=== PATIENT | male | born 1990 | race Hispanic/Latino ===

== ENCOUNTER 2024-07-26 10:36 | Emergency (ER) | payer OTHER, SELFPAY ==
[2024-07-26 10:56] VITALS: BP 164/78; PULSE 85; RESP 18; TEMP 36.7; O2SAT 98; BMI 46.3
--- NOTE | 2024-07-26 11:08 | DI.CT.S_ITS ---
PROCEDURE: CT ABDOMEN PELVIS W CON INDICATIONS: RLQ pain TECHNIQUE: After the administration of intravenous contrast, axial sections acquired from the lung bases to the pubic symphysis. Coronal and sagittal reformats were performed. For radiation dose reduction, the following was used: automated exposure control, adjustment of mA and/or kV according to patient size. COMPARISON: None. FINDINGS: Image quality: Diagnostic. Lower Chest: No significant findings. ABDOMEN: Liver: No solid mass. Gallbladder: No radiopaque gallstones or wall thickening. Biliary ducts: No biliary dilation. Pancreas: No ductal dilation. Spleen: Size is within normal limits. Adrenal Glands: No adrenal nodules. Kidneys and Ureters: No hydronephrosis. No solid mass. No complex renal cystic lesion which requires follow up. Stomach and Bowel: Normal colonic caliber, without significant wall thickening. Peritoneum: No abnormal intraperitoneal fluid. No free air. Ventral Wall: No significant ventral hernia. Abdominal Nodes: No retroperitoneal or mesenteric adenopathy by size criteria. Vessels: Aorta and inferior vena cava are normal in size. PELVIS: Pelvic Organs: Unremarkable. Bladder: No bladder wall thickening, accounting for underdistention. Pelvic Nodes: No enlarged lymph nodes. Miscellaneous: No inguinal hernias are seen. Normal appendix found right lower quadrant. Bones: No aggressive osseous abnormality. IMPRESSION: Source of persistent abdominal pain is not identified. Normal appendix found right lower quadrant. Dictated by: Alex Mathew M.D. on 07/26/2024 at 12:28 Approved by: Alex Mathew M.D. on 07/26/2024 at 12:30
[2024-07-26] MEDS: KETOROLAC 30 MG/ML VIAL 15 MG IV (11:35)
[2024-07-26] MEDS: SODIUM CHLORIDE 0.9% 1,000 ML 1000 ML IV (11:36)
[2024-07-26 11:41] LABS: Add Manual Diff / Slide Review NO; Basophils Absolute Auto 0 /uL (0-100); Basophils Percent Auto 0.6 % (0-2); Eosinophils Absolute Auto 100 /uL (0-450); Eosinophils Percent Auto 2.3 % (2-4); Hematocrit 48.6 % (41-53); Hemoglobin 16.9 g/dL (13.5-17.5); Lymphocytes Absolute Auto 2000 /uL (1100-4500); Lymphocytes Percent Auto 37.8 % (25-40); Mean Corpuscular HGB Conc 34.7 % (30-36); Mean Corpuscular Hemoglobin 31.3 PG (26-34); Mean Corpuscular Volume 90.4 fL (80-100); Monocytes Absolute Auto 500 /uL (0-900); Monocytes Percent Auto 8.9 % (3-14); Neutrophils Absolute Auto 2700 /uL (1500-7000); Neutrophils Percent Auto 50.4 % (50-75); Platelet Count 202 X10^3/uL (150-400); Red Blood Cell Count 5.38 X10^6/uL (4.5-5.9); Red Cell Distribution Width 12.3 % (11.6-14.8); White Blood Cell Count 5.3 X10^3/uL (4.5-11.0)
[2024-07-26 11:51] LABS: Alanine Aminotransferase 74 IU/L (<50); Albumin 4.8 g/dL (3.5-5.0); Albumin Globulin Ratio 1.4 (1.0-2.8); Alkaline Phosphatase 80 U/L (38-126); Aspartate Aminotransferase 38 IU/L (17-59); Bilirubin Total 0.7 mg/dL (0.2-1.3); Blood Urea Nitrogen 17 mg/dL (9-20); Calcium 9.4 mg/dL (8.4-10.2); Carbon Dioxide 25 mmol/L (22-32); Chloride 102 mmol/L (98-107); Estimated Glomerular Filt Rate > 60 mL/min (>60); Globulin 3.4 g/dL (1.7-4.1); Glucose 105 mg/dL (70-99); HEMOLYSIS < 15 (0-50); Lipase 79 U/L (23-300); Sodium 138 mmol/L (137-145); Total Protein 8.2 g/dL (6.3-8.2)
[2024-07-26 13:00] VITALS: BP 118/66; PULSE 67; RESP 18; O2SAT 99
--- NOTE | 2024-07-26 13:23 | ED_ITS ---
HPI - General Adult General Chief complaint: Abdominal Pain Stated complaint: Abd pain sent from [facility] Time Seen by Provider: 07/26/24 10:44 Source: patient Mode of arrival: Ambulatory History of Present Illness HPI narrative: 33-year-old gentleman with increasing stomach pain intermittently over the last 3 weeks. When he was driving today he had significant increase pain in the right lower quadrant. He describes it as sharp burning pain can sometimes radiate to his groin. Sometimes radiates to the left lower quadrant and back. Month ago he notes that he lifted a generator and did strain his lower back he describes this pain is significantly different from the low back pain that has responding to the physical therapy that he has been drooling. He comes in today because the pain this morning was significantly worse. No nausea vomiting fevers. No chest pain or palpitations. Related Data Home Medications Medication Instructions Recorded Confirmed cetirizine 10 mg tablet 10 mg PO DAILY 07/26/24 07/26/24 epinephrine 0.3 mg/0.3 mL ml IM 07/26/24 07/26/24 injection, auto-injector montelukast 10 mg tablet 10 mg PO DAILY 07/26/24 07/26/24 Allergies Allergy/AdvReac Type Severity Reaction Status Date / Time No Known Drug Allergies Allergy Verified 07/26/24 11:03 Review of Systems Review of Systems Narrative: Pertinent positive and negative findings as per HPI Patient History Social History Smoking Status: Former smoker Smoking Status: Former smoker Exam Initial Vital Signs Initial Vital Signs: Vital Signs Temperature 98.1 F 07/26/24 10:56 Pulse Rate 85 07/26/24 10:56 Respiratory Rate 18 07/26/24 10:56 Blood Pressure 164/78 H 07/26/24 10:56 Pulse Oximetry 98 07/26/24 10:56 Oxygen Delivery Method Room Air 07/26/24 10:56 General: Healthy appearing, in no acute distress. Able to give a complete and coherent history. Well-nourished well-developed HEENT: Moist mucous membranes, normal sclera with reactive pupils, Respiratory: Lungs are clear to auscultation, no wheezing no rales no rhonchi. Full and symmetrical air movement Cardiac: Regular rate and rhythm no murmurs no bruits Abdomen: Soft, Some tenderness into the right lower quadrant without rebound or guarding. No flank pain Skin: Warm and dry, no rashes Neurologic: Grossly neurologically intact with no obvious asymmetries or abnormalities Extremities: No trauma, well perfused Psych: Cooperative, appropriate insight and affect Course Orders Ordered: ED Orders 07/26/24 11:08 CT abdomen pelvis w con Stat 07/26/24 11:32 Complete Blood Count AUTO DIFF Stat Comprehensive Metabolic Panel Stat Lipase Stat Discontinued Medications Sodium Chloride (Normal Saline 0.9%) 1,000 mls @ 1,000 mls/hr IV BOLUS ONE Stop: 07/26/24 12:07 Last Infusion: 07/26/24 12:46 Dose: Infused Documented By: Admin: 07/26/24 11:36 Dose: 1,000 mls/hr Documented By: MAURA Ketorolac Tromethamine (Ketorolac 30 Mg/Ml Vial) 15 mg IV NOW ONE Stop: 07/26/24 11:09 Last Admin: 07/26/24 11:35 Dose: 15 mg Documented By: MAURA Vital Signs Vital signs: Vital Signs - 8 hr 07/26/24 10:56 Temperature 98.1 F Pulse Rate 85 Respiratory Rate 18 Blood Pressure 164/78 H Pulse Oximetry 98 Oxygen Delivery Method Room Air Medical Decision Making Lab Data 07/26/24 11:32 07/26/24 11:32 Labs: Lab Results 07/26/24 Range/Units 11:32 WBC 5.3 (4.5-11.0) X10^3/uL RBC 5.38 (4.5-5.9) X10^6/uL Hgb 16.9 (13.5-17.5) g/dL Hct 48.6 (41-53) % MCV 90.4 (80-100) fL MCH 31.3 (26-34) PG MCHC 34.7 (30-36) % RDW 12.3 (11.6-14.8) % Plt Count 202 (150-400) X10^3/uL Neut % (Auto) 50.4 (50-75) % Lymph % (Auto) 37.8 (25-40) % [place] % (Auto) 8.9 (3-14) % Eos % (Auto) 2.3 (2-4) % Baso % (Auto) 0.6 (0-2) % Neut # (Auto) 2700 (1317-4981) /uL Lymph # (Auto) 2000 (0374-5215) /uL [place] # (Auto) 500 (0-900) /uL Eos # (Auto) 100 (0-450) /uL Baso # (Auto) 0 (0-100) /uL Sodium 138 (137-145) mmol/L Potassium 4.0 (3.4-5.1) mmol/L Chloride 102 (98-107) mmol/L Carbon Dioxide 25 (22-32) mmol/L BUN 17 (9-20) mg/dL Creatinine 1.06 (0.66-1.25) mg/dL Estimated GFR > 60 (>60) mL/min BUN/Creatinine Ratio 16.0 (6-22) Glucose 105 H (70-99) mg/dL Calcium 9.4 (8.4-10.2) mg/dL Total Bilirubin 0.7 (0.2-1.3) mg/dL AST 38 (17-59) IU/L ALT 74 H (<50) IU/L Alkaline Phosphatase 80 (38-126) U/L Total Protein 8.2 (6.3-8.2) g/dL Albumin 4.8 (3.5-5.0) g/dL Globulin 3.4 (1.7-4.1) g/dL Albumin/Globulin Ratio 1.4 (1.0-2.8) Lipase 79 (23-300) U/L Urine Dip Bedside Urine Glucose Negative Bedside Urine Bilirubin - Negative Bedside Urine Ketone - Negative Urine Specific [place] 1.005 Bedside Urine Occult Blood - Negative Bedside Urine pH 6.0 Bedside Urine Protein - Negative Bedside Urine Urobilinogen - Negative Bedside Urine Nitrite - Negative Bedside Urine Leukocytes - Negative Esterase Point of care testing: Urine Dip Bedside Urine Glucose Negative Bedside Urine Bilirubin - Negative Bedside Urine Ketone - Negative Urine Specific [place] 1.005 Bedside Urine Occult Blood - Negative Bedside Urine pH 6.0 Bedside Urine Protein - Negative Bedside Urine Urobilinogen - Negative Bedside Urine Nitrite - Negative Bedside Urine Leukocytes - Negative Esterase MDM Narrative Medical decision making narrative: 33-year-old gentleman with 3 weeks of right lower quadrant pain intermittent getting progressively worse each time described as sharp and stabbing. Was troublesome enough this morning that he had difficulty driving and came in for further evaluation. He describes this is distinctly different from musculoskeletal back pain for which he is currently seeing physical therapy. Possibilities include appendicitis, constipation, hernia, musculoskeletal pain. His exam does show some mild right lower quadrant tenderness but no rebound or guarding. He has no flank pain. Labs show a normal CBC and normal chemistries CT scan of the abdomen does not show significant pathology and does show a normal appendix. Does not have significant stool volume appreciated on independent review discussion: 33-year-old gentleman with 3 weeks of intermittent right lower quadrant pain with no obvious explanation at this time. No evidence of infection, mass, kidney stones, shingles or alternate explanation that would require additional imaging or hospitalization at this time. I suspect that the pain is either related to musculoskeletal pain or constipation. These findings reviewed with him. Discussed reasons for returning to the emergency department. if things do worsen or point to a different localizing area I encouraged him to return to the ER for further evaluation. Encouragement is given and he is safe for discharge Discharge Plan Departure Patient Disposition: Home Clinical Impression: Abdominal pain, acute, right lower quadrant Instructions: DI for Abdominal Pain-Adult Activity Restrictions/Additional Instructions: thank you for coming in today I did not find any life threatening explanations for your abdominal pain today. You do not have any type of infections and specifically do not have appendicitis. You do not have kidney stones, no masses, tumors hernias or other reasons to explain the pain that you are having in your right lower abdomen sometimes with 3 weeks of intermittent pain, it can be due to constipation. I would recommend that you get some MiraLax ( or the cheaper generic version sitting right-sided on the grocery store self) and use a full cap full of the white powder in a large glass of water or in coffee or tea daily for the next 4- 5 days and see if that helps relieve any of your symptoms If you find that you are getting worse or develop any new symptoms, please feel free to return to the emergency department for further evaluation. Prescriptions: No Action epinephrine 0.3 mg/0.3 mL auto-injector IM montelukast 10 mg tablet 10 mg PO DAILY cetirizine 10 mg tablet 10 mg PO DAILY Referrals: Miscellaneous,Doctor, [Primary Care Provider] - Stand Alone Forms: Patient Portal/API/Survey
[2024-07-26 13:30] VITALS: BP 115/64; PULSE 63; RESP 18; O2SAT 99
== END 2024-07-26 13:47 | disposition home or self-care (01) ==
PROVIDERS: Emergency Provider Emergency Medicine
DX: R10.31 Right lower quadrant pain (principal)
CPT/HCPCS: 74177; 80053; 81003; 83690; 85025; 96361; 96374; 99283; 99284; J1885; Q9967